=== PATIENT | male | born 1970 | race Caucasian/White ===

== ENCOUNTER 2018-05-24 15:13 | Inpatient (IN) | payer BC ==
[~2018-05-24] VITALS: Ht 175.3 cm; Wt 94.9 kg
--- NOTE | ~2018-05-24 | EKG ---
[facility] [address] [facility] [place], [place] [address] Draft EK completed, results pending confirmation PATIENT NAME: KELSIEROYER Electrocardiogram DATE OF : 72 PHYSICIAN: PRELIMINARY REPORT #: [id number] REPORT IS CONFIDENTIAL AND NOT TO BE RELEASED WITHOUT AUTHORIZATION
[~2018-05-24 15:13] MED LIST: ASPIRIN EC81 MG PO; BACTRIM DS TAB1 EACH PO; BUPROPION XL300 MG PO; CEPHALEXIN500 MG PO; CILOSTAZOL50 MG PO; CLOPIDOGREL75 MG PO; CRESTOR20 MG PO; ERGOCALCIF50000 UNIT PO; LEVOTHYROXINE25 MCG PO; LIPITOR80 MG PO; MELOXICAM15 MG PO; METHOCARBAMOL750 MG PO; METOPROLOL SUCC25 MG PO; NITROGLYCERIN0.4 MG SL; NORCO 5-325 TA1 EACH PO; PANTOPRAZOLE SO20 MG PO; PANTOPRAZOLE SO40 MG PO; PLAVIX75 MG PO; ZETIA10 MG PO
--- NOTE | 2018-05-24 19:15 | NUR ---
PATIENT ARRIVED TO ROOM 126 VIA STRETCHER WITH YULIANA NICHOLSON. PATIENT SLID OVER TO BED INDEPENDENTLY. NOW RESTING COMFORTABLY IN BED, BREATHING IS EVEN AND UNLABORED. DENIES CHEST PAIN AT THIS, DENIES PAIN OF ANY KIND. HE STATES "I JUST FEEL A LITTLE LIGHT HEADED AFTER THEY GAVE ME THE MORPHINE DOWN IN THE ER." PATIENT ALSO REPORTS NAUSEA AND STATES "THIS HAPPENS TO ME WHEN I GET MORPHINE." DENIES NEEDS AT THIS TIME. A&O X4. VITALS WNL, BREATHING IS EVEN AND UNLABORED, SPO2 AT 93% ON RA. REPORTS THAT LEFT ARM REMAINS MILDY PAINFUL, DENIES NEED FOR PAIN MEDICATION. IV INTACT, FLUSHING WELL. CALL LIGHT WITHIN REACH.
--- NOTE | 2018-05-24 19:36 | EKG ---
[facility] [address] [place] [address] Signed Normal sinus rhythm Inferior infarct , age undetermined Abnormal ECG No previous ECGs available Confirmed by DUANE BOWER MD ([id number]) on 05/24/2018 7:36:15 PM Electronically Signed By: DUANE BOWER MD 05/24/18 193 PATIENT NAME: ROYER IGLESIAS MJ Electrocardiogram DATE OF : 72 PHYSICIAN: DUANE BOWER MD REPORT #: [id number] REPORT IS CONFIDENTIAL AND NOT TO BE RELEASED WITHOUT AUTHORIZATION
--- NOTE | 2018-05-24 20:30 | NUR ---
PATIENT REMAINS RESTFUL IN BED, BREATHING EVEN AND UNLABORED. DENIES CP, STATES NAUSEA IS IMPROVING. VITALS REMAIN WNL. CALL LIGHT WITHIN REACH.
--- NOTE | 2018-05-24 21:48 | NUR ---
PATIENT IS RESTFUL WITH EYES CLOSED, BREATHING IS EVEN AND UNLABORED, FLACC SCORE OF 0. VITALS WNL. CALL LIGHT WITHIN REACH. IVF INFUSING PER ORDE, HEPARIN GTT INFUSING AT 1000 UNITS/HR (20 ML/HR).
--- NOTE | 2018-05-24 22:50 | NUR ---
PATIENT RESTFUL WITH EYES CLOSED, BREATHING IS EVEN AND UNLABORED. FLACC SCORE OF 0. VITALS WNL, CALL LIGHT WITHIN REACH.
--- NOTE | 2018-05-24 23:00 | NUR ---
PTT 33.7 NOTED, HEPARIN GTT TITRATED TO 1200 UNITS/HR. PER DR. BOWER, PATIENT IS NOT TO RECEIVE ADDITIONAL BOLUS OF HEPARIN.
--- NOTE | 2018-05-24 23:20 | NUR ---
PATIENT REPORTS 3/10 PAIN IN LEFT ARM AND STATES "I HAVE A LITTLE BIT OF TIGHTNESS IN MY CHEST WELL." VITALS WNL, PATIENT RESTFUL, NOT IN DISTRESS. NOTIFIED DR. BOWER ABOUT PATIENT'S CURRENT SYMPTOMS. PER DR. BOWER, PATIENT IS TO RECEIVE PRN MORPHINE FOR MINIMAL PAIN POSSIBLE. ALSO NOTIFIED DR. BOWER THAT PATIENT HAS NAUSEA WITH IV MORPHINE. X1 DOSE OF 4 MG IV ZOFRAN ORDERED. NO ACUTE CHANGES ON MENAGERIE SUPERINTENDENT. PATIENT DENIES FURTHER NEEDS AT THIS TIME. CALL LIGHT WITHIN REACH. IVF INFUSING, HEPARING GTT INFUSING AT 1200 UNITS/HR.
--- NOTE | 2018-05-25 01:28 | NUR ---
PATIENT RESTFUL WITH EYES CLOSED, BREATHING IS EVEN AND UNLABORED, FLACC SCORE OF 0. CALL LIGHT WITHIN REACH.
--- NOTE | 2018-05-25 03:24 | NUR ---
PATIENT RESTFUL WITH EYES CLOSED, BREATHING IS EVEN AND UNLABORED, FLACC SCORE OF 0. CALL LIGHT WITHIN REACH.
--- NOTE | 2018-05-25 04:30 | NUR ---
PATIENT RESTFUL WITH EYES CLOSED, BREATHING IS EVEN AND UNLABORED. DENIES NEEDS AT THIS TIME, DENIES CHEST PAIN, DENIES NAUSEA. VITALS WNL, CALL LIGHT WITHIN REACH.
--- NOTE | 2018-05-25 06:20 | NUR ---
PATIENT DENIES NEEDS AT THIS TIME, BREATHING IS EVEN AND UNLABORED. DENIES CHEST PAIN, DENIES NAUSEA. BREAKFAST ORDERED. CALL LIGHT WITHIN REACH.
--- NOTE | 2018-05-25 08:06 | NUR ---
NOTIFIED DR. BOWER AT NURSES STATION OF PT'S C/O SEVERE NAUSEA. ONE TIME ORDER OF ZOFRAN. PT'S LEFT ARM PAIN RATED A 2 OUT OF 10. WILL GIVE ZOFRAN SHORTLY.
--- NOTE | 2018-05-25 08:21 | NUR ---
200 ML EMESIS AT THIS TIME- PT STATES MUCH RELIEF AFTER THIS BUT STILL REQUESTS ZOFRAN HIS BREAKFAST HAS JUST ARRIVED AND HE STILL FEELS "WEIRD" WHEN HE TURNS HIS HEAD TOO FAST. FULL ASSESSMENT COMPLETED. A/O X4. ROOM AIR. CLEAR LUNG SOUNDS. NITRO PASTE REMAINS ON HIS CHEST IN PLACE. HEPARIN GTT IS RUNNING CONTINUOUSLY AT 1300 UNITS/HR- PTT REDRAW DUE AT 1000. MAIN. FLUIDS RUNNING CONTINUOUSLY AT 125 ML/HR. URINE OUTPUT ADEQUATE. VS STABLE. PT STATES HE HAS INTERMITTENT LEFT ARM PAIN OF A 2 OUT OF 10 BUT THAT IT IS GONE. HE HAS NO REQUESTS OR NEEDS TO BE MET. EDUCATION COMPLETED. FAMILY MEMBER AT HIS BEDSIDE. CALL LIGHT WITHIN REACH. WILL CONTINUE TO MONITOR.
--- NOTE | 2018-05-25 09:20 | NUR ---
DR. BOWER AT THE BEDSIDE ASSESSING PT. PT IS PLEASANT, CALM AND COOPERATIVE FOR ASSESSMENT. THIS RN UPDATED DR. BOWER ON PT'S RECENT IRRITABILITY, CONFUSION, NO SLEEP X2 NIGHTS. REQUEST FOR MEDICATION TO HELP PT'S ANXIETY AND SLEEP TONIGHT.
--- NOTE | 2018-05-25 09:30 | NUR ---
PT SLEEPING SOUNDLY IN HIS BED WITH HIS FAMILY MEMBER AT THE BEDSIDE. NO S/S OF DISCOMFORT OF PAIN. TELE MONITOR SINUS RHYTHM WITH STABLE VS. CALL LIGHT WITHIN REACH. WILL CONTINUE TO MONITOR.
--- NOTE | 2018-05-25 10:22 | NUR ---
PT SITTING UP IN BED WATCHING TV WITH FAMILY AT BEDSIDE. PT REMAINS PLEASANT, CALM AND COOPERATIVE. CIRCLE SHEAR OPERATOR HAS DRAWN PTT AND RESULTS ARE PENDING. PT STATES HE NO LONGER HAS ANY NAUSEA; STILL NO PAIN ANYWHERE. CALL LIGHT WITHIN REACH. WILL CONTINUE TO MONITOR.
--- NOTE | 2018-05-25 11:10 | NUR ---
PTT RESULT 73.9; CALLED AND VERIFIED WITH PHARMACIST THAT PER ORDER, PT'S RESULT IS WITHIN GOAL AND NO RATE CHANGE TO BE MADE. GTT WILL CONTINUE AT 1300 U/HR AND PTT REDRAW WILL BE TOMORROW AM. WILL FOLLOW UP ON ALL OF THIS WITH DR. BOWER.
--- NOTE | 2018-05-25 11:15 | NUR ---
SPOKE WITH DR. BOWER AT THIS TIME- VERIFIED HEP GTT TO BE RAN TODAY/OVERNIGHT WITH PTT RECHECK AT 0600 TOMORROW.
--- NOTE | 2018-05-25 11:30 | NUR ---
PT SITTING UP IN BED WATCHING TV WITH NO C/O PAIN OR N/V. THIS RN UPDATED PT ON HIS CONDITION AND PLAN OF CARE REGARDING HEP GTT CONTINUITY. HE STATES HIS UNDERSTANDING- NO QUESTIONS OR CONCERNS. CALL LIGHT WITHIN REACH. WILL CONTINUE TO MONITOR.
--- NOTE | 2018-05-25 12:45 | NUR ---
PT ASSESSMENT COMPLETED AT THIS TIME. PT REMAINS VERY PLEASANT, CALM AND COOPERATIVE WATCHING TV. HE HAS JUST FINISHED HIS LUNCH. HE DENIES ANY CHEST/ARM PAIN. NO N/V. NO SOB OR BREATHING ISSUES. CLEAR LUNGS. ROOM AIR. LR WITH 20MEQ KCHLOR AND HEPARIN GTT RUNNING CONTINUOUSLY WITHOUT COMPLICATION. ABD REMAINS ROUNDED BUT SOFT AND NORMAL FOR PT. ACTIVE BOWEL TONES. PT REMAINS SR ON CONTINUOUS TELEMETRY AND VSS. NITRO PATCH REMAINS ON HIS CHEST. HE HAS NO QUESTIONS OR CONCERNS. JOKING WITH RN ABOUT HIM WANTING TO LEAVE AND NOT BE IN HOSPITAL. UPDATED AND AWARE OF PLAN OF CARE. CALL LIGHT WITHIN REACH. DENIES ANY NEEDS TO BE MET. WILL CONTINUE TO MONITOR.
--- NOTE | 2018-05-25 13:51 | NUR ---
pt requested and was given a pair of pajama pants. pt is alert and oreinted x4, cooperative. denies pain at this time.
--- NOTE | 2018-05-25 13:55 | NUR ---
CHECKED IN WITH PATIENT. PATIENT WAS WATCHING TV IN HIS ROOM. PATIENT HAD NO COMPLAINTS AT THIS TIME. PATIENT IV FLUIDS WERE FINISHED AT THIS TIME, RN RETRIEVED BAG AND NEXT BAG WAS STARTED. PATIENT MENTIONED HE MAY NEED TO HAVE A BOWEL MOVEMENT AT SOME POINT THIS AFTERNOON. PATIENT ASKED IF IT WOULD BE POSSIBLE TO GET TROUSERS AND SIT IN THE CHAIR NEXT TO THE BED. PATIENT WAS PROVIDED WITH TROUSERS AND TOLD THAT HE COULD CONTACT US WHEN HE WOULD LIKE TO TRANSFER. PATIENT STATED HIS WAS COMING AND HE WOULD LIKE TO GET UP WHEN SHE ARRIVES. PATIENT HAD NO OTHER COMPLAINTS.
[2018-05-25] MEDS ORDERED: ZANTAC150 MG PO (14:05)
--- NOTE | 2018-05-25 14:06 | NUR ---
Medications reconciled with patient. Although several medications have been prescribed to him, notably cardiac medications, he has not been taking any for quite some time.
--- NOTE | 2018-05-25 14:30 | NUR ---
PT DENIES ANY NEEDS TO BE MET. STATES THAT HE'S COMFORTABLE- NO CHEST PAIN. CALL LIGHT WITHIN REACH. WILL CONTINUE TO MONITOR.
--- NOTE | 2018-05-25 14:47 | NUR ---
CHECKED IN WITH PATIENT TO CHECK IV SITE. PATIENTS HAD ARRIVED. PATEINTS IV SITE WAS WITHIN NORMAL LIMITS AND THERE WAS NO REDNESS OR IRRITATION FROM THE TAPE. PATIENT HAD NO COMPLAINTS AT THIS TIME. PATIENT HAD URINATED, URINE WAS CLEAR. PATIENTS OUTPUT WAS RECORDED.
--- NOTE | 2018-05-25 15:35 | NUR ---
PRN MORPHINE GIVEN AT THIS TIME PER PT REQUEST FOR SLIGHT CHEST PAIN AND LEFT ARM PAIN WHICH HE RATES AT A 3 OUT OF 10. HIS IS AT HIS SIDE. NO OTHER QUESTIONS OR CONCERNS AT THIS TIME. CALL LIGHT WITHIN REACH. WILL CONTINUE TO MONITOR.
--- NOTE | 2018-05-25 16:45 | NUR ---
PT RESTING IN BED AND STATES HIS CHEST PAIN HAS GONE AWAY AFTER GETTING PRN MORPHINE. ASSESSMENT COMPLETED. NO CHANGE IN ASSESSMENT. HE DENIES PAIN, N/V AND SOB. CALL LIGHT WITHIN REACH. WILL CONTINUE TO MONITOR.
--- NOTE | 2018-05-25 17:30 | NUR ---
PT RESTING IN BED. NO QUESTIONS OR CONCERNS. SAYS HE STILL HAS NO CHEST PAIN. CALL LIGHT WITHIN REACH. WILL CONTINUE TO MONITOR.
--- NOTE | 2018-05-25 18:23 | NUR ---
PT HAS COMPLETED HIS DINNER AND RESTING IN BED NOW. HE HAS NO C/O PAIN. NO N/V. NO SOB. CALL LIGHT WITHIN REACH. WILL CONTINUE TO MONITOR.
--- NOTE | 2018-05-25 20:58 | NUR ---
PATIENT IS RESTFUL IN BED, BREATHING IS EVEN AND UNLABORED. DENIES CHEST PAIN, DENIES NEEDS AT THIS TIME. HEPARIN GTT INFUSING AT 1300 UNITS/HR, IVF INFUSING PER ORDERR. CALL LIGHT WITHIN REACH.
--- NOTE | 2018-05-25 21:58 | NUR ---
PATIENT REMAINS RESTFUL, DENIES CHEST PAIN. DENIES NEEDS AT THIS TIME. CALL LIGHT WITHIN REACH.
--- NOTE | 2018-05-26 | NUR ---
PATIENT RESTFUL WITH EYES CLOSED, BREATHING IS EVEN AND UNLABORED, FLACC SCORE OF 0. CALL LIGHT WITHIN REACH, HEPARIN GTT CONTINUOUS TO INFUSE AT 1300 UNITS/HR.
--- NOTE | 2018-05-26 01:00 | NUR ---
PATIENT RESTFUL WITH EYES CLOSED, BREATHING IS EVEN AND UNLABORED. DENIES CHEST PAIN, DENIES NEEDS AT THIS TIME. CALL LIGHT WITHIN REACH.
--- NOTE | 2018-05-26 03:20 | NUR ---
PATIENT REMAINS RESTFUL WITH EYES CLOSED. VITALS WNL. CALL LIGHT WITHIN REACH.
--- NOTE | 2018-05-26 05:23 | NUR ---
PATIENT ASSISTED TO TO BATHROOM SBA, TOLERATED WELL, DENIES CHEST PAIN WITH ACTIVITY, VITALS REMAIN WNL. GAIT STEADY. NOW RESTING IN BED AGAIN, VITALS WNL. HEPARIN GTT INFUSING AT 1300 UNITS/HR. CALL LIGHT WITHIN REACH.
--- NOTE | 2018-05-26 07:15 | EKG ---
[facility] [address] [facility] [place], [place] [address] Signed Normal sinus rhythm Inferior infarct (cited on or before 24-MAY-2018) Abnormal ECG When compared with ECG of 24-MAY-2018 15:19, No significant change was found Confirmed by DUANE BOWER MD ([id number]) on 05/26/2018 7:14:45 AM Electronically Signed By: DUANE BOWER MD 05/26/18 0715 PATIENT NAME: KELSIEMALINASLIMMIN BARKER Electrocardiogram DATE OF : 72 PHYSICIAN: DUANE BOWER MD REPORT #: [id number] REPORT IS CONFIDENTIAL AND NOT TO BE RELEASED WITHOUT AUTHORIZATION
--- NOTE | 2018-05-26 07:34 | NUR ---
PT'S PTT HAS COME BACK WITHIN GOAL AT 76.9. PER ORDER, NO CHANGE TO BE MADE WITH THE DRIP. WILL CONTINUE GTT AT 26 ML/HR WHICH IS 1300 UNITS/HR. NEXT PTT DRAW TOMORROW AM. WILL PLACE ORDER FOR THAT NOW.
--- NOTE | 2018-05-26 08:22 | NUR ---
VERIFIED WITH DR. BOWER AT THIS TIME WHETHER TO GIVE OR HOLD METOPROLOL SINCE PT HAS BEEN MID 40S HR. SHE SAYS TO GIVE.
--- NOTE | 2018-05-26 08:25 | NUR ---
ASSESSMENT COMPLETED. PT SITTING UP IN BED WATCHING TV. DR. BOWER HAS JUST LEFT THE BEDSIDE AND MADE PT NPO HE MIGHT BE TRANSFERING TO [facility] FOR [facility] [employer]NA[employer]. PT IS A/O X4 WITH C/O RIGHT CHEST PAIN OF A 2 OUT OF 10, REFUSING PAIN MEDICATION. DENIES N/V. DENIES SOB OR BREATHING PROBLEMS. DENIES LEFT ARM PAIN. CLEAR LUNG SOUNDS. ROOM AIR. HEP GTT AND CONTINUOUS FLUIDS RUNNING WNL INTO RIGHT WRIST PIV. PT STATES HE HAD A BM THIS MORNING. ACTIVE BOWEL SOUNDS. EDUCATION COMPLETED. PT UPDATED ON PLAN. DENIES ANY FURTHER NEEDS TO BE MET AT THIS TIME. CALL LIGHT WITHIN REACH. WILL CONTINUE TO MONITOR.
--- NOTE | 2018-05-26 09:28 | NUR ---
PT AND AT HIS BEDSIDE HAVE BEEN UPDATED ON PLAN OF CARE; PT HAS BEEN ASSIGNED A BED AT [facility] SO HE HAS BEEN UPDATED ON THE PLAN. HE REMAINS WNL WITHOUT ANY ISSUES AT THIS TIME. REMAINS PLEASANT AND CALM. WILL CONTINUE TO MONITOR.
--- NOTE | 2018-05-26 10:00 | NUR ---
PT TAKEN OFF UNIT AT THIS TIME VIA EMS ON [facility].
--- NOTE | 2018-05-26 10:54 | NUR ---
REPORT GIVEN VIA PHONE TO RECEIVING YULIANA MA AT [facility] AT THIS TIME- WAS UNABLE TO GET AHOLD OF HER 2 PREVIOUS ATTEMPTS UNTIL NOW.
== END 2018-05-26 10:15 | disposition short-term general hospital (02) | DRG 303 ==
LOC: ED 15:13 → CCU 19:02
PROVIDERS: ADMIT Internal Medicine
DX: I25.110 Atherosclerotic heart disease of native coronary artery with unstable angina pectoris (principal); I10 Essential (primary) hypertension; F17.210 Nicotine dependence, cigarettes, uncomplicated; E03.9 Hypothyroidism, unspecified; K21.9 Gastro-esophageal reflux disease without esophagitis; E78.49 Other hyperlipidemia; Z91.14 Patient's other noncompliance with medication regimen; Z95.5 Presence of coronary angioplasty implant and graft; Z79.899 Other long term (current) drug therapy; Z88.5 Allergy status to narcotic agent; Z88.0 Allergy status to penicillin
CPT/HCPCS: 36415; 71045; 80048; 80053; 80061; 82550; 82553; 83735; 83874; 84484; 85025; 85610; 85730; 93005; 93010; 96374; 96375; 99285-25; 99406; J1644; J2270; J2405; J3480; J7120

== ENCOUNTER 2020-02-17 14:38 | Emergency (ER) | payer BC ==
[~2020-02-17] VITALS: Ht 175.3 cm; Wt 102.1 kg
[~2020-02-17 14:38] MED LIST changes: +ZANTAC150 MG PO
[2020-02-17] MEDS ORDERED: EZETIMIBE10 MG PO (14:49)
[2020-02-17] MEDS ORDERED: REPATHA SY140 MG/1 M SUB-Q (14:50)
[2020-02-17] MEDS ORDERED: PANTOPRAZOLE SO40 MG PO (14:50)
[2020-02-17] MEDS ORDERED: LISINOPRIL10 MG PO (14:50)
[2020-02-17] MEDS ORDERED: ATORVASTATIN CA80 MG PO (14:50)
[2020-02-17] MEDS ORDERED: ISOSORBIDE DINI10 MG PO (14:50)
[2020-02-17] MEDS ORDERED: METOPROLOL TART25 MG PO (14:51)
[2020-02-17] MEDS ORDERED: NITROGLYCERIN0.4 MG SL (14:52)
--- NOTE | 2020-02-18 14:13 | EKG ---
[facility] [address] [facility] [place] [address] Signed Normal sinus rhythm Normal ECG No previous ECGs available Confirmed by DUANE BOWER MD ([id number]) on 02/18/2020 2:13:03 PM Electronically Signed By: DUANE BOWER MD 02/18/20 1413 PATIENT NAME: ROYER IGLESIAS MJ Electrocardiogram DATE OF : 72 PHYSICIAN: DUANE BOWER MD REPORT #: [id number] REPORT IS CONFIDENTIAL AND NOT TO BE RELEASED WITHOUT AUTHORIZATION
== END 2020-02-17 17:28 | disposition home or self-care (01) ==
LOC: ED 14:38
DX: R07.89 Other chest pain (principal); E03.9 Hypothyroidism, unspecified; I10 Essential (primary) hypertension; I25.10 Atherosclerotic heart disease of native coronary artery without angina pectoris; K21.9 Gastro-esophageal reflux disease without esophagitis; F17.200 Nicotine dependence, unspecified, uncomplicated; Z88.0 Allergy status to penicillin; Z88.5 Allergy status to narcotic agent; Z79.899 Other long term (current) drug therapy; Z79.82 Long term (current) use of aspirin
CPT/HCPCS: 71045; 74018; 80053; 81001; 83735; 84484; 85025; 93005; 93010; 99285-25; J7030

== ENCOUNTER 2024-01-30 17:29 | Emergency (ER) | payer BC ==
[~2024-01-30] VITALS: Ht 175.3 cm; Wt 101.8 kg
[~2024-01-30 17:29] MED LIST changes: +ATORVASTATIN CA80 MG PO; +EZETIMIBE10 MG PO; +ISOSORBIDE DINI10 MG PO; +LISINOPRIL10 MG PO; +METOPROLOL TART25 MG PO; +REPATHA SY140 MG/1 M SUB-Q
[2024-01-30] MEDS ORDERED: ASPIRIN 81 MG CHEW PO ONE (17:45)
[2024-01-30] MEDS ORDERED: NITROGLYCERIN 0.4 MG SUBL SL PRN (17:45)
[2024-01-30 17:49] LABS: BASOPHILS 0.7 % (0-2); EOSINOPHILS 1.5 % (0-6); HEMATOCRIT 45.6 % (35.0-50.0); HEMOGLOBIN 16.1 g/dL (12.0-18.0); LYMPHOCYTES 31.6 % (24-44); MCH 31.4 (27-36); MCHC 35.3 g/dl (30-36); MONOCYTES 5.9 % (0-12); NEUTROPHILS 60.3 % (39-80); PLATELET COUNT 250 K/uL (140-440); RBC 5.12 M/ul (4.3-5.7); RDW 14.6 (10.5-15.0)
[2024-01-30 18:06] LABS: ALBUMIN 3.7 g/dL (3.4-5.0); ALBUMIN/GLOBULIN RATIO 1.06 (1.1-2.4); ANION GAP 13.6 (7-21); BILIRUBIN, TOTAL 0.4 ng/dL (0.2-1.0); BUN/CREATININE RATIO 8.04 (6.0-28.6); CREATININE, SERUM 0.87 mg/dL (0.70-1.30); MAGNESIUM 1.8 mg/dL (1.8-2.4); POTASSIUM 3.6 mmol/L (3.5-5.1); PROTEIN, TOTAL 7.2 g/dL (6.4-8.2)
[2024-01-30] MEDS ORDERED: NITROGLYCERIN PACKET TOP ONE (18:30)
[2024-01-30] MEDS ORDERED: HEPARIN SOD,PORK IN 0.45% NACL 500 ML IV SCH (18:30)
[2024-01-30] MEDS ORDERED: HEParin SOD (PORCINE) 5,000 UNIT/ML VIAL IV ONE (18:30)
[2024-01-30] MEDS ORDERED: ondansetron HCL 4 MG/2 ML VIAL IV ONE (19:30)
[2024-01-30] MEDS ORDERED: MORPHINE SULFATE 10 MG/ML VIAL IV ONE (19:30)
--- NOTE | 2024-01-30 21:44 | EKG ---
[facility] [address] [facility] [place] [address] Signed Normal sinus rhythm Inferior infarct , age undetermined Abnormal ECG No previous ECGs available Confirmed by Barry Conner MD ([id number]) on 01/30/2024 9:44:31 PM Electronically Signed By: BARRY CONNER DO [id number] PATIENT NAME: ROYER IGLESIAS MJ Electrocardiogram DATE OF : 72 PHYSICIAN: BARRY CONNER DO REPORT #: [id number] REPORT IS CONFIDENTIAL AND NOT TO BE RELEASED WITHOUT AUTHORIZATION
[2024-01-30 22:16] VITALS: BP 128/86
== END 2024-01-30 22:16 | disposition short-term general hospital (02) ==
LOC: ED 17:29
PROVIDERS: Emergency Medicine
DX: I21.4 Non-ST elevation (NSTEMI) myocardial infarction (principal); I24.9 Acute ischemic heart disease, unspecified; T50.916A Underdosing of multiple unspecified drugs, medicaments and biological substances, initial encounter; I10 Essential (primary) hypertension; I25.10 Atherosclerotic heart disease of native coronary artery without angina pectoris; K21.9 Gastro-esophageal reflux disease without esophagitis; F17.200 Nicotine dependence, unspecified, uncomplicated; Z91.148 Patient's other noncompliance with medication regimen for other reason; Z95.5 Presence of coronary angioplasty implant and graft; Z88.0 Allergy status to penicillin; Z88.5 Allergy status to narcotic agent; Z79.82 Long term (current) use of aspirin; Z79.899 Other long term (current) drug therapy
CPT/HCPCS: 36415; 71045; 80053; 83735; 84484; 85025; 93005; 93010; 96374; 96375; 99285-25; A9270; J1644; J2270; J2405